=== PATIENT | female | born 1980 | race Caucasian/White ===

== ENCOUNTER 2018-04-10 10:12 | Emergency (ER) | payer MEDICAID ==
[~2018-04-10 10:12] MED LIST: CYCL-1 PO; FAMO-128 PO; FLUO20CA22 PO; HYDR-569 PO; IBUP-1573 PO; IBUP-1986 PO; ONDA4TAB12 PO; ONDA4TAB6 PO; ONDA8TAB9 PO; RANI-290 PO
[2018-04-10 11:38] VITALS: BP 144/97
== END 2018-04-10 11:39 | disposition home or self-care (01) ==
LOC: ER 10:13
DX: J06.9 Acute upper respiratory infection, unspecified (principal); G89.29 Other chronic pain; F17.200 Nicotine dependence, unspecified, uncomplicated; F12.90 Cannabis use, unspecified, uncomplicated; Z56.0 Unemployment, unspecified; Z79.899 Other long term (current) drug therapy
CPT/HCPCS: 99281

== ENCOUNTER 2018-08-03 15:24 | Emergency (ER) | payer MEDICAID ==
[~2018-08-03 15:24] MED LIST changes: +HYDR-4383 PO; -HYDR-569 PO
[2018-08-03 15:55] VITALS: BP 154/82
[2018-08-03] MEDS ORDERED: ORPH100T2 PO (16:49)
[2018-08-03] MEDS ORDERED: HYDR-4353 PO (16:49)
[2018-08-03] MEDS ORDERED: ketorolac trometh inj. 60 MG/2 ML VIAL IM ONE (16:50)
== END 2018-08-03 17:09 | disposition home or self-care (01) ==
LOC: ER 15:25
DX: S30.0XXA Contusion of lower back and pelvis, initial encounter (principal); G89.29 Other chronic pain; F12.90 Cannabis use, unspecified, uncomplicated; F17.200 Nicotine dependence, unspecified, uncomplicated; W10.9XXA Fall (on) (from) unspecified stairs and steps, initial encounter; Y93.01 Activity, walking, marching and hiking; Y92.89 Other specified places as the place of occurrence of the external cause; Y99.8 Other external cause status; Z79.899 Other long term (current) drug therapy; Z56.0 Unemployment, unspecified
CPT/HCPCS: 72100; 96372; 99283; J1885

== ENCOUNTER 2018-08-10 12:43 | Emergency (ER) | payer MEDICAID ==
[~2018-08-10] VITALS: Ht 170.2 cm; Wt 99.0 kg
[~2018-08-10 12:43] MED LIST changes: +HYDR-4353 PO; +ORPH100T2 PO
[2018-08-10 12:54] VITALS: BP 159/100
[2018-08-10] MEDS ORDERED: NAPR-56 PO (13:21)
[2018-08-10] MEDS ORDERED: PENI250T2 PO (13:21)
== END 2018-08-10 13:31 | disposition home or self-care (01) ==
LOC: ER 12:44
DX: K08.89 Other specified disorders of teeth and supporting structures (principal); G89.29 Other chronic pain; F15.90 Other stimulant use, unspecified, uncomplicated; Z88.1 Allergy status to other antibiotic agents; Z79.899 Other long term (current) drug therapy; Z56.0 Unemployment, unspecified; Z87.19 Personal history of other diseases of the digestive system; Z98.818 Other dental procedure status
CPT/HCPCS: 99283

== ENCOUNTER 2018-08-12 14:12 | Emergency (ER) | payer MEDICAID ==
[~2018-08-12] VITALS: Ht 170.2 cm; Wt 100.0 kg
[~2018-08-12 14:12] MED LIST changes: +NAPR-56 PO; +PENI250T2 PO
[2018-08-12 14:38] VITALS: BP 156/96
--- NOTE | 2018-08-12 14:49 | NUR ---
RIGHT LOWER JAW TOOTH PAIN
[2018-08-12] MEDS ORDERED: ONDA4TAB6 PO (15:06)
[2018-08-12] MEDS ORDERED: HYDR-4353 PO (15:06)
[2018-08-12] MEDS ORDERED: LACT1CAP65 PO (15:06)
== END 2018-08-12 15:13 | disposition home or self-care (01) ==
LOC: ER 14:13
DX: K04.7 Periapical abscess without sinus (principal); R19.7 Diarrhea, unspecified; R11.0 Nausea; G89.29 Other chronic pain; F17.200 Nicotine dependence, unspecified, uncomplicated; F12.90 Cannabis use, unspecified, uncomplicated; Z56.0 Unemployment, unspecified; Z88.1 Allergy status to other antibiotic agents
CPT/HCPCS: 99283

== ENCOUNTER 2018-08-17 14:51 | Emergency (ER) | payer MEDICAID, OTHER ==
[~2018-08-17] VITALS: Ht 170.2 cm; Wt 97.5 kg
[~2018-08-17 14:51] MED LIST changes: +LACT1CAP65 PO
[2018-08-17 14:54] VITALS: BP 152/92
[2018-08-17] MEDS ORDERED: METH-360 PO (17:49)
[2018-08-17] MEDS ORDERED: NAPR-56 PO (17:49)
[2018-08-17] MEDS ORDERED: ketorolac tromethamine 15mg/ml inj. IM ONE (17:50)
[2018-08-17] MEDS ORDERED: IBUP-1985 PO (18:26)
[2018-08-18] MEDS ORDERED: CYCL-1 PO (14:18)
[2018-08-21] MEDS ORDERED: NAPR-56 PO (12:56)
[2018-08-21] MEDS ORDERED: ACET-2615 PO (12:56)
[2018-08-21] MEDS ORDERED: CHLO473M3 PO (12:56)
== END 2018-08-17 18:30 | disposition home or self-care (01) ==
LOC: ER 14:52
DX: S16.1XXA Strain of muscle, fascia and tendon at neck level, initial encounter (principal); G89.29 Other chronic pain; F12.90 Cannabis use, unspecified, uncomplicated; Z88.1 Allergy status to other antibiotic agents; Z79.899 Other long term (current) drug therapy; V49.59XA Passenger injured in collision with other motor vehicles in traffic accident, initial encounter; Y93.89 Activity, other specified; Y92.413 State road as the place of occurrence of the external cause; Y99.9 Unspecified external cause status
CPT/HCPCS: 96372; 99283; J1885

== ENCOUNTER 2018-08-18 12:36 | Emergency (ER) | payer OTHER ==
[~2018-08-18] VITALS: Ht 170.2 cm; Wt 90.0 kg
[~2018-08-18 12:36] MED LIST changes: +IBUP-1985 PO; +METH-360 PO
[2018-08-18] MEDS ORDERED: CYCL-1 PO (14:18)
[2018-08-18] MEDS ORDERED: cyclobenzaprine 10mg tablet PO ONE (14:20)
[2018-08-18] MEDS ORDERED: ketorolac trometh inj. 60 MG/2 ML VIAL IM ONE (14:20)
[2018-08-18] MEDS ORDERED: HYDROcodone/acetaminophen 10/325mg tab PO ONE (14:20)
[2018-08-18 14:29] VITALS: BP 123/89
[2018-08-21] MEDS ORDERED: NAPR-56 PO (12:56)
[2018-08-21] MEDS ORDERED: ACET-2615 PO (12:56)
[2018-08-21] MEDS ORDERED: CHLO473M3 PO (12:56)
== END 2018-08-18 14:31 | disposition home or self-care (01) ==
LOC: ER 12:37
DX: M62.838 Other muscle spasm (principal); F32.9 Major depressive disorder, single episode, unspecified; G89.29 Other chronic pain; F12.10 Cannabis abuse, uncomplicated; Z88.1 Allergy status to other antibiotic agents; Z79.899 Other long term (current) drug therapy; V89.2XXD Person injured in unspecified motor-vehicle accident, traffic, subsequent encounter
CPT/HCPCS: 96372; 99283; J1885

== ENCOUNTER 2018-09-16 11:02 | Emergency (ER) | payer MEDICAID ==
[~2018-09-16] VITALS: Ht 170.2 cm; Wt 90.0 kg
[~2018-09-16 11:02] MED LIST changes: +CHLO473M3 PO; -HYDR-4353 PO; -PENI250T2 PO
[2018-09-16 11:27] VITALS: BP 139/87
[2018-09-16] MEDS ORDERED: SULF1TAB49 PO (12:26)
[2018-09-16] MEDS ORDERED: sulfamethoxazole/trimethoprim DS (800/160mg) tablet PO ONE ×2 (12:30→15:35)
[2018-09-16] MEDS ORDERED: LIDOcaine 1% w/epiNEPHrine 1:200,000 30ml vial IM ONE (12:30)
--- NOTE | 2018-09-16 15:31 | NUR ---
Dr Longoria at bedside to I&D abscess to left breast, pt luisito well, dressed with bandaid
[2018-09-16] MEDS ORDERED: HYDR-4353 PO (15:32)
== END 2018-09-16 15:59 | disposition home or self-care (01) ==
LOC: ER 11:03
DX: N61.1 Abscess of the breast and nipple (principal); G89.29 Other chronic pain; F17.200 Nicotine dependence, unspecified, uncomplicated; F12.90 Cannabis use, unspecified, uncomplicated; Z88.1 Allergy status to other antibiotic agents; Z79.899 Other long term (current) drug therapy
CPT/HCPCS: 10060; 99283; J3490

== ENCOUNTER 2018-11-13 18:03 | Emergency (ER) | payer MEDICAID ==
[~2018-11-13] VITALS: Ht 170.2 cm; Wt 90.9 kg
[~2018-11-13 18:03] MED LIST changes: +ALBU18HF2 INH; +INHA1SPA3 MC; -NAPR-56 PO
[2018-11-13 18:09] VITALS: BP 146/93
[2018-11-13] MEDS ORDERED: PENI500T2 PO (18:34)
== END 2018-11-13 18:46 | disposition home or self-care (01) ==
LOC: ER 18:03
DX: K08.89 Other specified disorders of teeth and supporting structures (principal); G89.29 Other chronic pain; F12.90 Cannabis use, unspecified, uncomplicated; F17.200 Nicotine dependence, unspecified, uncomplicated; Z88.1 Allergy status to other antibiotic agents; Z79.899 Other long term (current) drug therapy
CPT/HCPCS: 99283

== ENCOUNTER 2019-01-09 10:05 | Emergency (ER) | payer MEDICAID ==
[~2019-01-09] VITALS: Ht 170.2 cm; Wt 95.0 kg
[2019-01-09 10:12] VITALS: BP 143/85
[2019-01-09] MEDS ORDERED: ketorolac trometh. 30mg/ml inj. IM ONE (10:55)
[2019-01-09] MEDS ORDERED: NAPR-56 PO (11:37)
[2019-01-09] MEDS ORDERED: TRAM50TA2 PO (11:37)
== END 2019-01-09 12:05 | disposition home or self-care (01) ==
LOC: ER 10:05
DX: M54.5 Low back pain (principal); G89.29 Other chronic pain; F32.9 Major depressive disorder, single episode, unspecified; F12.90 Cannabis use, unspecified, uncomplicated; Z88.1 Allergy status to other antibiotic agents; Z79.899 Other long term (current) drug therapy
CPT/HCPCS: 96372; 99283; J1885

== ENCOUNTER 2019-04-05 09:13 | Emergency (ER) | payer MEDICAID ==
[~2019-04-05] VITALS: Ht 170.2 cm; Wt 81.8 kg
[2019-04-05] MEDS ORDERED: ibuprofen tablet 400 MG TABLET PO ONE (09:25)
[2019-04-05] MEDS ORDERED: PENI500T2 PO (09:37)
[2019-04-05] MEDS ORDERED: IBUP-1984 PO (09:37)
[2019-04-05 09:41] VITALS: BP 120/86
== END 2019-04-05 09:43 | disposition home or self-care (01) ==
LOC: ER 09:13
DX: K02.9 Dental caries, unspecified (principal); G89.29 Other chronic pain; F32.9 Major depressive disorder, single episode, unspecified; F17.200 Nicotine dependence, unspecified, uncomplicated; F12.90 Cannabis use, unspecified, uncomplicated; Z88.1 Allergy status to other antibiotic agents; Z79.899 Other long term (current) drug therapy
CPT/HCPCS: 99283

== ENCOUNTER 2019-08-15 18:49 | Emergency (ER) | payer MEDICAID ==
[~2019-08-15] VITALS: Ht 170.2 cm; Wt 90.0 kg
[~2019-08-15 18:49] MED LIST changes: +FLUO-212 PO; -FLUO20CA22 PO
[2019-08-15 18:52] VITALS: BP 137/86
--- NOTE | 2019-08-15 20:45 | NUR ---
JOANNE MCNEAL TO SEE PT
[2019-08-15] MEDS ORDERED: ketorolac tromethamine 15mg/ml inj. IM ONE (21:05)
[2019-08-15] MEDS ORDERED: orphenadrine citrate 60mg/2ml inj. IM ONE (21:05)
[2019-08-15] MEDS ORDERED: METH-360 PO (21:24)
[2019-08-15] MEDS ORDERED: IBUP-1985 PO (21:24)
--- NOTE | 2019-08-15 21:42 | NUR ---
GASTON BYNUM TRIED TO DC PT. PT REFUSED TOLEAVE UNTIL WE GAVE HER AN RX FOR ANITEMETIC
[2019-08-15] MEDS ORDERED: ONDA4TAB6 PO (21:43)
== END 2019-08-15 22:00 | disposition home or self-care (01) ==
LOC: ER 18:50
DX: G44.209 Tension-type headache, unspecified, not intractable (principal); G89.29 Other chronic pain; F32.9 Major depressive disorder, single episode, unspecified; F12.90 Cannabis use, unspecified, uncomplicated; Z88.1 Allergy status to other antibiotic agents; Z79.899 Other long term (current) drug therapy
CPT/HCPCS: 96372; 99283; J1885; J2360

== ENCOUNTER 2020-02-27 22:25 | Emergency (ER) | payer MEDICAID ==
[~2020-02-27] VITALS: Ht 170.2 cm; Wt 81.8 kg
--- NOTE | 2020-02-27 22:50 | NUR ---
PT PLACED IN CLOSED ROOM WITH HEPA FILTER AND CART OUTSIDE OF DOOR. PRIMARY RN AND TECH MADE AWARE.
[2020-02-27] MEDS ORDERED: morphine 4 MG/ML inj SYRINge IV ONE (23:25)
[2020-02-27] MEDS ORDERED: normal saline 1000ml 1,000 ML IV ONE (23:25)
--- NOTE | 2020-02-27 23:58 | NUR ---
COVID SWAB NEGATIVE. DR. SHOEMAKER NOTIFIED.
[2020-02-28 00:14] LABS: BASOPHILS # (AUTO) 0.1 X10'3 (0-0.2); BASOPHILS % (AUTO) 0.6 % (0-1); EOSINOPHILS # (AUTO) 0.5 X10'3 (0-0.9); EOSINOPHILS % (AUTO) 6.3 % (0-6); HEMATOCRIT 38.7 % (35.0-45.0); HEMOGLOBIN 13.4 g/dl (12.0-16.0); LYMPHOCYTES # (AUTO) 1.5 X10'3 (1.1-4.8); LYMPHOCYTES % (AUTO) 17.8 % (21-51); MEAN CORPUSCULAR HEMOGLOBIN 32.8 PG (27.0-31.0); MEAN CORPUSCULAR HGB CONC 34.5 g/dL (33.0-36.5); MEAN CORPUSCULAR VOLUME 94.9 FL (78-98); MEAN PLATELET VOLUME 9.3 FL (7.4-10.4); MONOCYTES # (AUTO) 0.8 X10'3 (0-0.9); MONOCYTES % (AUTO) 9.5 % (2-12); NEUTROPHILS # (AUTO) 5.4 X10'3 (1.8-7.7); NEUTROPHILS % (AUTO) 65.8 % (42-75); PLATELET COUNT 256 X10'3 (140-440); RED BLOOD COUNT 4.08 X10'6 (4.20-5.60); RED CELL DISTRIBUTION WIDTH 12.7 % (11.5-14.5); WHITE BLOOD COUNT 8.2 X10'3 (4.5-11.0)
[2020-02-28 00:27] LABS: ALANINE AMINOTRANSFERASE 30 U/L (12-78); ALBUMIN 3.6 G/DL (3.4-5.0); ALKALINE PHOSPHATASE 72 IU/L (46-116); ANION GAP 15 (8-16); ASPARTATE AMINO TRANSFERASE 37 U/L (10-37); BILIRUBIN,TOTAL 0.4 MG/DL (0.1-1.0); BLOOD UREA NITROGEN 23 MG/DL (7-18); BUN/CREATININE RATIO 14.3 (6.6-38.0); CALCIUM 8.6 MG/DL (8.5-10.1); CHLORIDE 99 MMOL/L (99-107); CREATININE 1.61 MG/DL (0.40-0.90); GLUCOSE 111 MG/DL (70-104); LIPASE 82 U/L (73-393); SODIUM 135 MMOL/L (135-145); TOTAL CARBON DIOXIDE 21.3 MMOL/L (24-32); TOTAL PROTEIN 7.3 G/DL (6.4-8.2); eGFR 36 ML/MIN
[2020-02-28 00:30] LABS: POTASSIUM 2.3 MMOL/L (3.5-5.1)
[2020-02-28 00:36] LABS: URINE HCG NEGATIVE (NEG)
[2020-02-28 00:44] LABS: D-DIMER 0.56 MG/L FEU (0-0.50)
[2020-02-28 00:45] LABS: CLARITY,URINE SLIGHTLY CLOUDY (Clear); COLOR,URINE YELLOW (Yellow); GLUCOSE, URINE NEGATIVE (Neg); KETONES,URINE NEGATIVE (Neg); LEUKOCYTE ESTERASE ,URINE NEGATIVE (Neg); NITRITES, URINE NEGATIVE (Neg); OCCULT BLOOD,URINE NEGATIVE (Neg); PROTEIN,URINE NEGATIVE (Neg); UROBILINOGEN,URINE 0.2 E.U/dL (0.2-1.0)
[2020-02-28 00:51] LABS: BACTERIA,URINE 1+ /HPF (Neg); RBC,URINE 0-2 /HPF (0-2); UA COLLECTION TYPE STRAIGHT CATH; WBC,URINE 0-4 /HPF (0-4)
[2020-02-28 00:52] LABS: SQUAMOUS EPITHELIAL CELL,UR MANY /LPF (FEW)
[2020-02-28] MEDS ORDERED: potassium Cl 20 mEq SR tablet PO STA (01:13)
[2020-02-28] MEDS ORDERED: magnesium oxide 400mg tablet PO ONE (01:15)
[2020-02-28] MEDS ORDERED: HYDROmorphone 1 mg/ml syringe IV ONE ×2 (01:15→01:25)
[2020-02-28] MEDS ORDERED: iohexol 300mg/ml 100ml inj. ONE (01:24)
[2020-02-28] MEDS ORDERED: normal saline 1000ml 1,000 ML IV ONE (01:35)
--- NOTE | 2020-02-28 01:58 | NUR ---
Just returned from cta abd pelvis. Given kdur 60 meq and mag 400 mg. 2nd liter ns ordered and now infusing.
[2020-02-28] MEDS ORDERED: ACET325T55 PO (02:06)
[2020-02-28] MEDS ORDERED: ESOM40CA54 PO (02:06)
[2020-02-28] MEDS ORDERED: ONDA-103 PO (02:06)
[2020-02-28] MEDS ORDERED: NAPR-56 PO (05:10)
[2020-02-28] MEDS ORDERED: ALBU6.7H9 INH (05:10)
[2020-02-28 05:32] LABS: TROPONIN I < 0.04 NG/ML (0.0-0.05)
--- NOTE | 2020-02-28 05:55 | NUR ---
pt reports frustration about not having any answers as to why she is having intermittent cp and why she is having the weakness and back pain. States something is wrong with her. States she will probably have to go back to an ER again. MD came in to talk w/Pt about discharge and explained the results, but Pt states she was upset and that the MD focused more on her "bruise on my stomach than my heart". I explained that she had a thorough cardiac work up and they results were negative.
--- NOTE | 2020-02-28 06:09 | NUR ---
PT STATES "THE'RE ARE NO INSTRUCTIONS ABOUT CHEST PAIN IN HER DISCHARGE". SHE STATES SHE WILL NOT RETURN TO OUR HOSPITAL. STATES THE DOCTOR DID NOT LISTEN TO HER. I TOLD HER SHE IS WELCOMOE TO RETURN TO OUR ER AT ANOTHER TIME TO BE EVALUATED BY A DIFFERENT MD AND IS WELCOME TO CALL OUR PATIENT RELATIONS DEPARTMENT WITH ANY COMMENTS OR ABOUT HER DISSATISFACTION IN HER CARE.
[2020-02-28 06:15] VITALS: BP 125/86
== END 2020-02-28 06:19 | disposition home or self-care (01) ==
LOC: ER 22:26
DX: M79.10 Myalgia, unspecified site (principal); R06.02 Shortness of breath; R53.1 Weakness; R11.0 Nausea; R07.9 Chest pain, unspecified; R53.83 Other fatigue; Z20.828 Contact with and (suspected) exposure to other viral communicable diseases; E87.6 Hypokalemia; N17.9 Acute kidney failure, unspecified; G89.29 Other chronic pain; F32.9 Major depressive disorder, single episode, unspecified; F12.90 Cannabis use, unspecified, uncomplicated; Z88.1 Allergy status to other antibiotic agents; Z79.899 Other long term (current) drug therapy
CPT/HCPCS: 36415; 71045; 71275; 74177; 80053; 81001; 81025; 83605; 83690; 84145; 84484; 85025; 85379; 85610; 87040; 87635; 93005; 96361; 96374; 96375; 99285; C9803; J1170; J2270; J7030; Q9967

== ENCOUNTER 2024-11-07 17:23 | Emergency (ER) | payer MEDICAID ==
[~2024-11-07] VITALS: Ht 170.2 cm; Wt 68.5 kg
[~2024-11-07 17:23] MED LIST changes: +ACET325T55 PO; +ALBU6.7H14 INH; +CHLO473M13 PO; -CHLO473M3 PO; +ESOM40CA66 PO; +ONDA-103 PO; +ONDA-243 PO; -ONDA4TAB12 PO; -ORPH100T2 PO; +ORPH100T4 PO
[2024-11-07] MEDS: amox tr/potassium clavulanate 875/125mg TAB PO ONE (18:38)
[2024-11-07] MEDS: ketorolac trometh 15mg/ml vial 15 MG/ML ML IM ONE (18:39)
[2024-11-07] MEDS ORDERED: AMOX-117 PO (18:47)
[2024-11-07 18:59] VITALS: BP 123/76; PULSE 111; RESP 18; TEMP 98.6; O2SAT 99
== END 2024-11-07 19:01 | disposition home or self-care (01) ==
LOC: ER 17:23
DX: K08.89 Other specified disorders of teeth and supporting structures (principal); Z88.1 Allergy status to other antibiotic agents
CPT/HCPCS: 96372; 99283; J1885